=== PATIENT | female | born 1970 | race Caucasian/White ===

== ENCOUNTER 2018-06-15 13:11 | Outpatient (CLI) | payer BC ==
--- NOTE | 2018-06-15 15:42 | RAD ---
LEFT KNEE FOUR VIEWS: HISTORY: Left knee pain. FINDINGS: No fracture, dislocation, or bony destruction is identified. POS: [facility]
== END 2018-06-15 13:12 | disposition home or self-care (01) ==
LOC: BICRAD 13:11
PROVIDERS: ATTEND Family Medicine
DX: M25.562 Pain in left knee (principal)

== ENCOUNTER 2018-06-23 13:28 | Outpatient (CLI) | payer BC | END 2018-06-23 13:29 | disposition home or self-care (01) | LOC: BICMAMMO 13:28 | PROVIDERS: ATTEND Family Medicine | DX: Z12.31 Encounter for screening mammogram for malignant neoplasm of breast (principal); Z80.3 Family history of malignant neoplasm of breast | CPT/HCPCS: 77063; 77067 ==

== ENCOUNTER 2018-11-05 09:57 | Outpatient (CLI) | payer BC ==
--- NOTE | 2018-11-05 13:24 | RAD ---
FRONTAL RADIOGRAPH PELVIS: 11/05/2018 HISTORY: Back pain. Right-sided radiculopathy. FINDINGS: There is mild degenerative change of the right sacroiliac joint. The pelvis ring is intact. The fem oral heads project normally over their respective acetabulum. No displaced fracture noted. IMPRESSION: No acute osseous abnormality. POS: [facility]
--- NOTE | 2018-11-05 13:28 | RAD ---
RIGHT HIP TWO VIEWS: 11/05/2018 HISTORY: Injury. Trauma. Pain. FINDINGS: Mild degenerative change of right sacroiliac joint with sclerosis on iliac aspect. No evidence of ac [place] fracture or dislocation. No significant degenerative change is seen involving the right hip. IMPRESSION: No acute findings. POS: [facility]
--- NOTE | 2018-11-05 13:30 | RAD ---
LUMBOSACRAL SPINE TWO VIEWS: HISTORY: Low back pain for two weeks. FINDINGS: Two views of the lumbosacral spine show normal height and alignment of the vertebral bodies and inter vertebral disks without fracture or subluxation. No degenerative changes are seen. IMPRESSION: No evidence of acute osseous abnormality. POS: [facility]
== END 2018-11-05 09:58 | disposition home or self-care (01) ==
LOC: BICRAD 09:57
PROVIDERS: ATTEND Family Medicine
DX: M25.551 Pain in right hip (principal); M54.5 Low back pain; R10.11 Right upper quadrant pain; R10.31 Right lower quadrant pain
CPT/HCPCS: 72100; 72170

== ENCOUNTER 2018-11-13 06:55 | Outpatient (CLI) | payer BC ==
--- NOTE | 2018-11-13 08:12 | ULT ---
ULTRASOUND ABDOMEN: HISTORY: Right upper quadrant pain. FINDINGS: The gallbladder is full of shadowing calculi with wall thickness of 3 mm. No pericholecystic fluid i s seen. The liver demonstrates increased echogenicity with fatty infiltration with focal sparing adj acent to the gallbladder. The pancreas and aorta are not well visualized due to overlying bowel gas. The visualized portions of the IVC are unremarkable. The spleen and kidneys are normal. No free f luid is seen. IMPRESSION: 1. Fatty liver. 2. Cholelithiasis. POS: [facility]
--- NOTE | 2018-11-13 08:20 | ULT ---
TRANSABODMINAL AND TRANSVAGINAL PELVIC ULTRASOUND WITH KATHLEEN SCALE AND COLOR FLOW AND SPECTRAL DOPPLER IMAGING: Date: 11/13/18 HISTORY: Right lower quadrant pain. FINDINGS: The patient is post hysterectomy. The left ovary is not visualized. The right ovary measures 2.4 x 2. 2 x 2.8 cm and demonstrates flow. A dominant follicle is seen measuring 18.0 mm. No free fluid is russell ntified. No pelvic mass is seen. IMPRESSION: 1. Status post hysterectomy. 2. Nonvisualization of left ovary. 3. Normal right ovary. POS: [facility]
== END 2018-11-13 06:56 | disposition home or self-care (01) ==
LOC: BICULT 06:55
PROVIDERS: ATTEND Family Medicine
DX: R10.11 Right upper quadrant pain (principal); R10.31 Right lower quadrant pain; M54.5 Low back pain; M25.551 Pain in right hip; M54.30 Sciatica, unspecified side; K76.0 Fatty (change of) liver, not elsewhere classified; K80.20 Calculus of gallbladder without cholecystitis without obstruction; Z90.710 Acquired absence of both cervix and uterus
CPT/HCPCS: 76700; 76856

== ENCOUNTER 2018-11-30 10:45 | Outpatient (CLI) | payer BC ==
[2018-11-30 11:59] LABS: #Basophils 0.1 thou/uL (0.0-0.2); #Eosinphils 0.1 thou/uL (0.0-0.7); #Lymphocytes 3.1 thou/uL (1.20-3.40); #Monocytes 0.6 thou/uL (0.11-0.59); %Eosinophils 1.3 % (0.0-10.0); %Lymphocytes 39.3 % (21.0-51.0); %Monocytes 7.1 % (0.0-10.0); %Neutrophils 51.4 % (42.0-75.0); Hemoglobin 14.5 g/dL (12.0-16.0); Mean Corpuscular HGB CONC 31.5 g/dL (32.0-36.0); Mean Corpuscular Hemoglobin 29.4 pg (27.0-31.0); Mean Corpuscular Volume 93.4 fL (78.0-98.0); Mean Platelet Volume 8.6 fL (7.4-10.4); Platelet Count 270 thou/uL (130-400); RBC Distribution Width 11.8 % (11.5-14.5); Red Blood Cell (RBC) Count 4.92 mill/uL (4.20-5.40); White Blood Cell (WBC) Count 7.8 thou/uL (4.8-10.8)
[2018-11-30 12:11] LABS: ALT (SGPT) 27 U/L (8-55); AST (SGOT) 18 U/L (5-34); Albumin 4.6 g/dL (3.5-5.0); Alkaline Phosphatase 60 U/L (40-150); Anion Gap 13 mmol/L (10-20); BUN (Urea Nitrogen) 10 mg/dL (7.0-18.7); Bilirubin, Total 0.4 mg/dL (0.2-1.2); Calc. Creatinine Clearance 0 mL/min (70-130); Carbon Dioxide 27 mmol/L (22-29); Chloride 103 mmol/L (98-107); Estimated GFR-MDRD 81; Globulin 3.1 g/dL (2.4-3.5); Glucose 94 mg/dL (70-105); Potassium 4.7 mmol/L (3.5-5.1); Protein, Total 7.7 g/dL (6.0-8.3); Sodium 138 mmol/L (136-145)
== END 2018-11-30 10:46 | disposition home or self-care (01) ==
LOC: LABBT 10:45
PROVIDERS: ATTEND Surgery
DX: Z01.812 Encounter for preprocedural laboratory examination (principal); K80.20 Calculus of gallbladder without cholecystitis without obstruction
CPT/HCPCS: 80053; 85025

== ENCOUNTER 2018-12-11 06:14 | Day surgery (SDC) | payer BC ==
[2018-11-30 11:38] VITALS: BMI 26.6
[2018-12-11] MEDS ORDERED: Fentanyl 100 MCG/2 ML VIAL ONE (06:31)
[2018-12-11] MEDS ORDERED: Lidocaine 2% Jelly 5 ML TUBE ONE (06:31)
[2018-12-11] MEDS ORDERED: Levofloxacin 500 mg/D5W 100 ml Premix Bag ONE (07:04)
[2018-12-11] MEDS ORDERED: Ketorolac Tromethamine 30 MG/ML VIAL ONE (07:04)
[2018-12-11] MEDS ORDERED: Bupivacaine/Epinephrine 0.25% 30 ML VIAL ONE (07:07)
[2018-12-11] MEDS ORDERED: Midazolam HCl 2 mg/2 ml Vial ONE (07:42)
--- NOTE | 2018-12-11 09:48 | PDOC.OP ---
Operative Note - Operative Note Operative Note: DATE OF PROCEDURE: 12/11/2018 PROCEDURES: Laparoscopic cholecystectomy. SURGEON: Ortega Chan M.D. PREOPERATIVE DIAGNOSIS: Cholelithiasis and cholecystitis POSTOPERATIVE DIAGNOSIS: Cholelithiasis and cholecystitis FINDINGS: White walled gallbladder with multiple large stones. Small cystic duct. Fibrosis at the level of the neck of the gallbladder consistent with chronic inflammation. HISTORY: Patient with symptoms of biliary colic. Laparoscopic cholecystectomy was recommended for symptomatic relief. Preoperative LFTs were normal and bile duct was normal caliber on preoperative imaging. PROCEDURE: After informed consent was obtained and appropriate preoperative antibiotics were administered, the patient was taken to the operating room and placed in the supine position and general endotracheal anesthesia was administered. The stomach was decompressed with an OG tube and the abdomen was prepped and draped in standard sterile fashion. Local anesthesia was infused to the skin and subcutaneous tissues at the umbilical level. A transverse skin incision was made. The fascia was elevated and a Veress needle was placed into the abdominal cavity without difficulty. Opening pressure was less than 5 and carbon dioxide gas easily insufflated to an intra-abdominal pressure of 15, which the patient tolerated well. The Veress needle was withdrawn and a [place] port advanced under direct vision. The abdominal cavity was carefully examined. There was no evidence of Veress needle or of trocar injury. Local anesthesia was infused to the skin and subcutaneous tissues at the epigastric, right upper quadrant, and right lateral abdominal sites and trocars were placed under direct vision of the laparoscope. The fundus of the gallbladder was grasped and retracted superiorly. The infundibulum was grasped and retracted laterally. The serosa was stripped inferiorly at the level of the neck of the gallbladder exposing the cystic duct and artery which were traced clearly to their insertion in the gallbladder. Critical view of safety was obtained and the cystic duct and artery were clipped and divided between clips. An additional small venous complex was likewise clipped and divided. The gallbladder was then dissected free of the gallbladder bed using hook electrocautery. Prior to complete removal of the gallbladder from the gallbladder bed, the area of the cystic duct and artery stumps was examined. The clips were in good position completely across these structures and there was no bleeding and no leakage of bile. The gallbladder was then placed into an EndoCatch bag and drawn out through the epigastric incision after crushing and removing the large stones. The epigastric trocar was replaced and the operative site easily irrigated to clear. There was no significant bleeding or spillage of bile. The epigastric trocar was removed and the fascia closed under direct laparoscopic vision with a 0 Vicryl suture on a [place] needle in a figure -of-eight manner with excellent technical result. The right upper quadrant and right lateral abdominal trocars were removed and hemostasis verified. Carbon dioxide gas was allowed to desufflate through the umbilical trocar which was then removed. The skin incisions were closed with 4-0 subcuticular Monocryl sutures and Dermabond dressings were placed. The patient was extubated and taken to the recovery room in good condition. There were no complications. ESTIMATED BLOOD LOSS: Minimal. SPECIMEN : Gallbladder and contents.
[2018-12-11] MEDS ORDERED: HYDROcodone/Acetaminophen 5/325 mg Tablet ONE (10:37)
[2018-12-11] MEDS ORDERED: Ondansetron ODT 4 MG TAB ONE (10:39)
[2018-12-11] MEDS ORDERED: Ondansetron PF 4 MG/2 ML Vial ONE (16:31)
[2018-12-11] MEDS ORDERED: PROPOFOL 200 MG/20 ML VIAL ONE (16:31)
[2018-12-11] MEDS ORDERED: Dexamethasone 20 MG/5 ML VIAL ONE (16:31)
[2018-12-11] MEDS ORDERED: Glycopyrrolate 0.2 MG/ML 5 ML SYRINGE ONE (16:31)
[2018-12-11] MEDS ORDERED: PHENYLEPHRINE-NS 100 MCG/ML 10 ML SYRINGE ONE (16:31)
[2018-12-11] MEDS ORDERED: Lidocaine 1% PF 5 ML VIAL ONE (16:31)
[2018-12-11] MEDS ORDERED: Rocuronium Bromide 10 MG/ML (10ML VIAL) ONE (16:31)
== END 2018-12-11 11:22 | disposition home or self-care (01) ==
LOC: SDC 06:14
PROVIDERS: ATTEND Surgery
PROC: 0FT44ZZ Resection of Gallbladder, Percutaneous Endoscopic Approach (ICD-10-PCS; principal; 2018-12-11)
DX: K80.10 Calculus of gallbladder with chronic cholecystitis without obstruction (principal); K82.8 Other specified diseases of gallbladder; Z79.84 Long term (current) use of oral hypoglycemic drugs; Z88.0 Allergy status to penicillin
CPT/HCPCS: 88304; J0131; J1100; J1885; J1956; J2001; J2250; J2405; J2704; J3010; Q0162

== ENCOUNTER 2022-01-31 12:06 | Outpatient (CLI) | payer BC | END 2022-01-31 12:07 | disposition home or self-care (01) | LOC: BICMAMMO 12:06 | PROVIDERS: ATTEND Family Medicine | DX: Z12.31 Encounter for screening mammogram for malignant neoplasm of breast (principal) | CPT/HCPCS: 77063; 77067 ==

== ENCOUNTER 2022-02-08 07:20 | Outpatient (CLI) | payer BC | END 2022-02-08 07:21 | disposition home or self-care (01) | LOC: BICULT 07:20 | PROVIDERS: ATTEND Family Medicine | DX: R06.02 Shortness of breath (principal); I10 Essential (primary) hypertension; K76.0 Fatty (change of) liver, not elsewhere classified | CPT/HCPCS: 76700 ==

== ENCOUNTER 2022-07-01 13:04 | Outpatient (CLI) | payer BC | END 2022-07-01 13:05 | disposition home or self-care (01) | LOC: BICRAD 13:04 | PROVIDERS: ATTEND Family Medicine | DX: J18.9 Pneumonia, unspecified organism (principal) | CPT/HCPCS: 71046 ==